=== PATIENT | female | born 1935 | race Caucasian/White ===

== ENCOUNTER → 2016-09-02 | Outpatient (CLI) | payer MEDICARE, OTHER ==
[~2016-09-02] MED LIST: ALPR0.5T99 PO; ARIC10TA PO; DRIS8000 PO; MECL25 PO; MEMA28CA PO; METF-324 PO; METO50CR PO; TELM40 PO; ZOLP10TA3 PO
[2016-09-02 13:22] LABS: MICRO ALBUMIN RANDOM URINE RAW 10.5 MG/L (0.0-30.0)
[2016-09-02 13:29] LABS: ALKALINE PHOSPHATASE 83 U/L (45-117); ALT (GPT) 18 U/L (10-53); ANION GAP 13 MEQ/L (5-15); AST (GOT) 16 U/L (15-37); BICARBONATE 22.2 MEQ/L (21.0-32.0); BLOOD UREA NITROGEN 17 MG/DL (7-18); CHLORIDE 106 MEQ/L (98-107); GLOMERULAR FILTRATION RATE 56 ML/MIN (>89); POTASSIUM 4.1 MEQ/L (3.5-5.1); SODIUM (NA) 141 MEQ/L (136-145); TOTAL BILIRUBIN ADULT 0.4 MG/DL (0.2-1.0)
== END ==
LOC: PLAB 10:49
PROVIDERS: ATTEND Internal Medicine Endocrinology, Diabetes & Metabolism
DX: E11.9 Type 2 diabetes mellitus without complications (principal)
CPT/HCPCS: 36415; 80053; 82043

== ENCOUNTER 2017-02-06 19:50 | Emergency (ER) | payer MEDICARE, OTHER ==
[~2017-02-06] VITALS: Ht 157.5 cm; Wt 80.0 kg
[2017-02-06 20:32] VITALS: BP 156/102; PULSE 130; RESP 18; TEMP 99.8; O2SAT 95
[2017-02-06] MEDS ORDERED: METF1000 PO (21:04)
[2017-02-06] MEDS ORDERED: TELM40 PO (21:04)
[2017-02-06] MEDS ORDERED: METO50TA11 PO (21:04)
[2017-02-06] MEDS ORDERED: ALPR.5 PO (21:04)
--- NOTE | 2017-02-06 21:07 | PD ---
HPI Chief Complaint: Complaint Time Seen by Provider: 20:48 Travel History International Travel<30 days: No Contact w/Intl Traveler<30days: No Traveled to known affect area: No History of Present Illness HPI This 81-year-old female is complaining of cough and frequent urination. She does have a history of allergies and occasionally coughs or allergies. She has not had fever or chills. She is not short of breath. She does not smoke. She has a long history of bladder trouble. She had 3 sections in 1994 she had surgery in [place] or [facility]. She has had ongoing problems with infections and frequency of urination and incontinence. She sees Dr. Dover. She has not had any fever or chills. She started an antibiotic today that Dr Dover had prescribed for her based on a urine culture [facility] Past Medical History Arthritis: Yes Anxiety: Yes Depression: Yes Cancer: No Cardiovascular Problems: Yes (TACHYCARDIA) High Cholesterol: Yes Congestive Heart Failure: No Diabetes: Yes Endocrine: Yes Gastrointestinal Disorders: Yes (REFLUX, ESOPHAGEAL DILITATION ) GERD: Yes Genitourinary: Yes (INCONTINENCE) Hepatitis: No Hiatal Hernia: Yes Hypertension: Yes Immune Disorder: No Musculoskeletal: Yes Neurologic: No Psychiatric: Yes (ANXIETY /DEPRESSION) Reproductive: Yes (HYSTERECTOMY) Respiratory: No Thyroid Disease: No Menopausal: Yes Past Surgical History Abdominal Surgery: Yes (PARTIAL COLON REMOVED) AICD: No Appendectomy: Yes Body Medical Devices: BILAT JAW WITH HARDWARE Section: Yes (X 3 ) Eye Surgery: Yes (CATARACT SX BILAT) Genitourinary Surgery: Yes (TUMORS REMOVED FROM BLADDER) Gynecologic Surgery: Yes (C SECTION X 3, HYSTERECTOMY) Hysterectomy: Yes Joint Replacement: Yes (KNEES) Oral Surgery: Yes (BILAT JAW SX) Pacemaker: No Social History Alcohol Use: No Tobacco Use: No Substance Use: No Allergies-Medications (Allergen,Severity, Reaction): Coded Allergies: Compazine (Verified Allergy, Severe, "tongue swells up", 04/23/16) Contrast Media (Verified Allergy, Severe, "rash", 02/06/16) Ultram (Unverified Allergy, Severe, itching, 04/23/16) Sulfa (Verified Allergy, Unknown, 04/23/16) *MDRO Multi-Drug Resistant Organism (Verified Adverse Reaction, Unknown, HX MRSA , 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) Reported Meds & Prescriptions Reported Meds & Active Scripts Active Reported Metoprolol Succinate ER 24 HR (Metoprolol Succinate) 50 Mg Tab 50 Mg PO DAILY Micardis (Telmisartan) 40 Mg Tab 40 Mg PO DAILY Metformin (Metformin HCl) 1,000 Mg Tab 1,000 Mg PO BIDPC With meals Xanax (Alprazolam) 0.5 Mg Tab 0.5 Mg PO Q6H PRN Review of Systems General / Constitutional: No: Fever, Chills Eyes: No: Diploplia, Blurred Vision HENT: No: Headaches, Vertigo Cardiovascular: No: Chest Pain or Discomfort, Palpitations Respiratory: Positive: Cough, No: Shortness of Breath, Wheezing, Sneezing Gastrointestinal: No: Vomiting, Diarrhea Genitourinary: Positive: Urgency, Frequency, Dysuria, Incontinence Musculoskeletal: No: Myalgias, Arthralgias Skin: No Rash, No Itching Neurologic: No: Weakness, Dizziness Psychiatric: No: Anxiety Hematologic/Lymphatic: No: Easy Bruising Physical Exam Narrative GENERAL: Well-developed female SKIN: Focused skin assessment warm/dry. HEAD: Atraumatic. Normocephalic. EYES: Pupils equal and round. No scleral icterus. No injection or drainage. ENT: No nasal bleeding or discharge. Mucous membranes pink and moist. NECK: Trachea midline. No JVD. CARDIOVASCULAR: Regular rate and rhythm. No murmur appreciated. RESPIRATORY: No accessory muscle use. Clear to auscultation. Breath sounds equal bilaterally. GASTROINTESTINAL: Abdomen soft, non-tender, nondistended. Hepatic and splenic margins not palpable. MUSCULOSKELETAL: No obvious deformities. No clubbing. No cyanosis. No edema. NEUROLOGICAL: Awake and alert. No obvious cranial nerve deficits. Motor grossly within normal limits. Normal speech. PSYCHIATRIC: Appropriate mood and affect; insight and judgment normal. Data Data Last Documented VS Vital Signs Date Time Temp Pulse Resp B/P Pulse Ox O2 Delivery O2 Flow Rate FiO2 02/06/17 22:01 102 20 02/06/17 21:20 98.9 154/93 96 Room Air Orders Urinalysis - C+S If Indicated (02/06/17 21:02) Chest, Single Ap (02/06/17 21:02) Phenazopyridine (Pyridium) (02/06/17 22:00) Ketorolac Inj (Toradol Inj) (02/06/17 22:15) Labs Laboratory Tests Test 02/06/17 21:20 Urine Color YELLOW Urine Turbidity CLOUDY Urine pH 6.0 Urine Specific [place] 1.011 Urine Protein NEG mg/dL Urine Glucose (UA) NEG mg/dL Urine Ketones NEG mg/dL Urine Occult Blood MOD Urine Nitrite NEG Urine Bilirubin NEG Urine Leukocyte Esterase NEG Urine RBC 0-3 /hpf Urine WBC 0-2 /hpf Urine Squamous Epithelial 0-5 /hpf Cells Microscopic Urinalysis Comment CULT NOT INDICATED MDM Medical Decision Making Medical Screen Exam Complete: Yes Emergency Medical Condition: Yes Medical Record Reviewed: Yes Differential Diagnosis Differential includes pneumonia, bronchitis, allergic, UTI, cystitis, interstitial cystitis Narrative Course Urinalysis is negative. Patient has been on an antibiotic for a day and this may be partially treated. She says she had a medication that she got from [place] and was very helpful to her and she will call with the medication described before. He'll be released Diagnosis Primary Impression: Cystitis Scripts Phenazopyridine (Pyridium)100 Mg [id number] Mg PO Q8HR #20 TAB Ref 0 Prov:Beni Saini MD 02/06/17 Disposition: 01 DISCHARGE HOME Condition: Stable Beni Saini MD Feb 06, 2017 21:07
[2017-02-06 21:20] VITALS: BP 154/93; PULSE 122; RESP 20; TEMP 98.9; O2SAT 96
[2017-02-06 21:29] LABS: BLOOD, URINE MOD (NEG); GLUCOSE,URINE NEG (NEG); KETONE, URINE NEG (NEG); NITRITE,URINE NEG (NEG)
[2017-02-06 21:34] LABS: URINE COLOR YELLOW (YELLW/STRAW)
[2017-02-06 21:35] LABS: RBC, URINE 0-3 /hpf (0-3); SQUAMOUS EPITHELIAL CELL URINE 0-5 /hpf (0-5); WBC, URINE 0-2 /hpf (0-5)
[2017-02-06 21:36] LABS: COMMENT (UR) CULT NOT INDICATED; CULTURE IF INDICATED CULT NOT INDICATED
--- NOTE | 2017-02-06 21:54 | RADRPT ---
EXAM DATE/TIME: 02/06/2017 21:44 [facility] COMPARISON: No previous studies available for comparison. INDICATIONS : Cough starting today MEDICAL HISTORY : None. SURGICAL HISTORY : None. ENCOUNTER: Initial ACUITY: 1 day PAIN SCORE: 0/10 LOCATION: Bilateral chest FINDINGS: A single view of the chest demonstrates the lungs to be symmetrically aerated without evidence of mas s, infiltrate or effusion. The cardiomediastinal contours are unremarkable. Osseous structures are intact. CONCLUSION: No acute disease. Gary Kimbrough MD FACR on February 06, 2017 at 21:47 Board Certified Radiologist. This report was verified electronically.
[2017-02-06] MEDS ORDERED: PHENAZOPYRIDINE HCL 200 MG TAB PO ONE (22:00)
[2017-02-06 22:01] VITALS: PULSE 102; RESP 20
[2017-02-06] MEDS ORDERED: KETOROLAC TROMETHAMINE 60 MG/2 ML (IM) VIAL IM ONE (22:15)
[2017-02-06] MEDS ORDERED: PHEN0.4T PO ×3 (22:20→22:23)
[2017-02-06 22:50] VITALS: BP 138/83
[2017-02-06] MEDS ORDERED: MONUPAK PO (23:15)
== END 2017-02-06 22:52 | disposition home or self-care (01) ==
LOC: PHED 19:50
DX: N30.90 Cystitis, unspecified without hematuria (principal); E78.00 Pure hypercholesterolemia, unspecified; E11.9 Type 2 diabetes mellitus without complications; K21.9 Gastro-esophageal reflux disease without esophagitis; I10 Essential (primary) hypertension
CPT/HCPCS: 71010; 81001; 96372; 99284; J1885

== ENCOUNTER 2017-04-20 13:49 | Emergency (ER) | payer MEDICARE, OTHER ==
[~2017-04-20 13:49] MED LIST changes: +ALPR.5 PO; -ALPR0.5T99 PO; -ARIC10TA PO; -DRIS8000 PO; -MECL25 PO; -MEMA28CA PO; -METF-324 PO; +METF1000 PO; -METO50CR PO; +METO50TA11 PO; +MONUPAK PO; +PHEN0.4T PO; -ZOLP10TA3 PO
[2017-04-20 13:56] VITALS: BP 171/100; PULSE 100; RESP 20; TEMP 98.4; O2SAT 94
[2017-04-20] MEDS ORDERED: MORPHINE SULFATE 4 MG/ML INJ IV PUSH ONE (15:00)
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
[2017-04-20 15:07] LABS: AUTOMATED NEUTROPHIL # 5.4 TH/MM3 (1.8-7.7); BASOPHIL # 0.1 TH/MM3 (0-0.2); BASOPHIL % 0.6 % (0.0-2.0); EOSINOPHIL # 0.2 TH/MM3 (0-0.4); EOSINOPHIL % 1.7 % (0.0-4.0); HEMATOCRIT 38.7 % (35.0-46.0); HEMO FLAGS DIFF FINAL; LYMPH % 34.4 % (9.0-44.0); LYMPHOCYTE # 3.2 TH/MM3 (1.0-4.8); MEAN CELL VOLUME 84.3 FL (80.0-100.0); MEAN CORPUSCULAR HEMOGLOBIN 29.3 PG (27.0-34.0); MEAN CORPUSCULAR HGB CONC 34.7 % (32.0-36.0); MONO % 5.6 % (0.0-8.0); NEUT % 57.7 % (16.0-70.0); PLATELET COUNT 276 TH/MM3 (150-450); RED BLOOD COUNT 4.59 MIL/MM3 (4.00-5.30); RED CELL DISTRIBUTION WIDTH 12.2 % (11.6-17.2); WHITE BLOOD COUNT 9.4 TH/MM3 (4.0-11.0)
[2017-04-20 15:19] LABS: BICARBONATE 28.1 MEQ/L (21.0-32.0)
--- NOTE | 2017-04-20 15:22 | RADRPT ---
EXAM DATE/TIME: 04/20/2017 15:07 [facility] COMPARISON: No previous studies available for comparison. INDICATIONS : Left shoulder pain. MEDICAL HISTORY : None. SURGICAL HISTORY : None. ENCOUNTER: Initial ACUITY: 1 week PAIN SCORE: 7/10 LOCATION: Left shoulder. FINDINGS: There is an nondisplaced fracture of the left humeral head. The greater tuberosity appears to be alexandra e fragment. Examination limited by patient's body habitus. CONCLUSION: Humeral head fracture. Gary Kimbrough MD FACR on April 20, 2017 at 15:19 Board Certified Radiologist. This report was verified electronically.
--- NOTE | 2017-04-20 15:23 | RADRPT ---
EXAM DATE/TIME: 04/20/2017 15:07 [facility] COMPARISON: CHEST SINGLE AP, February 06, 2017, 21:44. INDICATIONS : Left elbow pain. MEDICAL HISTORY : None. SURGICAL HISTORY : None. ENCOUNTER: Initial ACUITY: 1 week PAIN SCORE: 5/10 LOCATION: Left elbow FINDINGS: The bony mineralization is within normal limits. There mild degenerative changes. No acute fracture s een. No joint effusion is evident. CONCLUSION: 1. Degenerative changes. No acute bony abnormality identified. Olaf Kimbrough MD on April 20, 2017 at 15:21 Board Certified Radiologist. This report was verified electronically.
--- NOTE | 2017-04-20 15:36 | RADRPT ---
EXAM DATE/TIME: 04/20/2017 15:15 [facility] COMPARISON: CT BRAIN W/O CONTRAST, December 05, 2015, 14:25. INDICATIONS : Fell out of bed this morning. Hit top of head. RADIATION DOSE: 54.09 CTDIvol (mGy) MEDICAL HISTORY : Hypertension. Gastroesophageal reflux disease. Hernia, hiatal. SURGICAL HISTORY : Hysterectomy. Appendectomy. ENCOUNTER: Initial ACUITY: 1 day PAIN SCALE: 4/10 LOCATION: cranial TECHNIQUE: Multiple contiguous axial images were obtained of the head. Using automated exposure control and adj ustment of the mA and/or kV according to patient size, radiation dose was kept as low as reasonably a chievable to obtain optimal diagnostic quality images. DICOM format image data is available electro nically for review and comparison. FINDINGS: CEREBRUM: There is generalized atrophy. Ventricles are normal in size. There is moderate severity periventricul ar white matter low attenuation, stable from the prior study. No evidence of midline shift, mass les ion, hemorrhage or acute infarction. No extra-axial fluid collections are seen. POSTERIOR FOSSA: The cerebellum and brainstem demonstrate no acute finding. The 4th ventricle is midline. The cerebe llopontine angle is unremarkable. EXTRACRANIAL: Visualized sinuses are clear. SKULL: The calvaria is intact. No evidence of skull fracture. CONCLUSION: 1. No acute intracranial abnormality is identified. 2. Stable chronic changes include generalized atrophy and periventricular white matter change charact eristic of chronic microvascular ischemia. Modesto Aden MD on April 20, 2017 at 15:32 Board Certified Radiologist. This report was verified electronically.
--- NOTE | 2017-04-20 15:48 | RADRPT ---
EXAM DATE/TIME: 04/20/2017 15:15 [facility] COMPARISON: No previous studies available for comparison. INDICATIONS : Fell out of bed this morning. Hit head. Neck pain. RADIATION DOSE: 26.64 CTDIvol (mGy) MEDICAL HISTORY : Gastroesophageal reflux disease. Hypertension. Hernia, hiatal. SURGICAL HISTORY : Appendectomy. Hysterectomy. ENCOUNTER: Initial ACUITY: 1 day PAIN SCALE: 4/10 LOCATION: neck TECHNIQUE: Volumetric scanning of the cervical spine was performed. Multiplanar reconstructions in the sagittal, coronal and oblique axial planes were performed. Using automated exposure control and adjustment o f the mA and/or kV according to patient size, radiation dose was kept as low as reasonably achievable to obtain optimal diagnostic quality images. DICOM format image data is available electronically f or review and comparison. FINDINGS: VERTEBRAE: Normal vertebral body height. No fracture is identified. There is normal variant of the posterior arc h of C1 with lack of complete fusion posteriorly in the midline. ALIGNMENT: No anterolisthesis or retrolisthesis. The craniocervical junction and C1-C2 level demonstrate no significant abnormality. C2-C3: No disc herniation, canal stenosis, or neural foraminal stenosis. C3-C4: There is decreased disc height with diffuse small posterior disc osteophyte complex. There is mild le ft facet arthrosis. No spinal canal stenosis is present. There is mild narrowing of the left neural f oramen. C4-C5: There is left facet arthrosis. No disc herniation, canal stenosis, or neural foraminal stenosis is pr esent. C5-C6: There is decreased disc height with diffuse small posterior disc osteophyte complex. No spinal canal stenosis or neural foraminal stenosis is present. C6-C7: No disc herniation, canal stenosis, or neural foraminal stenosis. C7-T1: No disc herniation, canal stenosis, or neural foraminal stenosis. There is mild facet arthrosis. Visualized paraspinous structures demonstrate no acute finding. CONCLUSION: No acute cervical spine abnormality is identified. There are degenerative changes at multiple levels, as above. Modesto Aden MD on April 20, 2017 at 15:39 Board Certified Radiologist. This report was verified electronically.
--- NOTE | 2017-04-20 15:54 | RADRPT ---
EXAM DATE/TIME: 04/20/2017 15:20 [facility] COMPARISON: No previous studies available for comparison. INDICATIONS : Fell out of bed this morning. Hit head. Lower back pain. RADIATION DOSE: 40.23 CTDIvol (mGy) MEDICAL HISTORY : Hypertension. Gastroesophageal reflux disease. Hernia, hiatal. SURGICAL HISTORY : Appendectomy. Hysterectomy. ENCOUNTER: Initial ACUITY: 1 day PAIN SCALE: 5/10 LOCATION: spine TECHNIQUE: Volumetric scanning of the lumbar spine was performed. Multiplanar reconstructions in the sagittal, coronal and oblique axial planes were performed. Using automated exposure control and adjustment of the mA and/or kV according to patient size, radiation dose was kept as low as reasonably achievable t o obtain optimal diagnostic quality images. DICOM format image data is available electronically for review and comparison. FINDINGS: VERTEBRAE: Normal vertebral body height. Bones are osteoporotic. ALIGNMENT: No evidence of subluxation. T12-L1: The thecal sac has a normal diameter. No evidence of disc bulge or protrusion. The neural foramina are patent bilaterally. L1-L2: The thecal sac has a normal diameter. No evidence of disc bulge or protrusion. The neural foramina are patent bilaterally. L2-L3: Mild disc bulge is evident without focal herniation. L3-L4: Mild disc bulging is present with moderate facet disease. There is minimal bilateral neural foramina encroachment. L4-L5: Minimal anterolisthesis of L4 on L5is present secondary to degenerative changes in the facets. Ther e is moderate spinal stenosis. There is no fracture. L5-S1: Generalized bulging is present with moderate facet disease. There is no herniation. There is no fra cture SI joints are normal. CONCLUSION: Degenerative disc disease as described above osteopenia and moderate facet disease. MRI could be used it exclude an acute subtle compression. Gary Kimbrough MD FACR on April 20, 2017 at 15:50 Board Certified Radiologist. This report was verified electronically.
[2017-04-20 16:35] VITALS: BP 201/97; PULSE 96; RESP 18; O2SAT 98
[2017-04-20] MEDS ORDERED: HYDR-3533 PO (16:38)
== END 2017-04-20 16:55 | disposition home or self-care (01) ==
LOC: PHED 13:49
DX: S42.292A Other displaced fracture of upper end of left humerus, initial encounter for closed fracture (principal); I10 Essential (primary) hypertension; K21.9 Gastro-esophageal reflux disease without esophagitis; M51.36 Other intervertebral disc degeneration, lumbar region; M85.80 Other specified disorders of bone density and structure, unspecified site; W06.XXXA Fall from bed, initial encounter; E78.00 Pure hypercholesterolemia, unspecified; E11.9 Type 2 diabetes mellitus without complications
CPT/HCPCS: 70450; 72125; 72131; 73030; 73070; 80048; 82550; 85025; 96374; 99285; J2270